=== PATIENT | female | born 1995 | race Caucasian/White ===

== ENCOUNTER 2018-12-19 08:56 | Emergency (ER) | payer MEDICAID ==
[~2018-12-19] VITALS: Ht 157.5 cm; Wt 76.7 kg
[2018-12-19] MEDS ORDERED: LIDOCAINE 1%-EPI 1:100,000 20 ML VIAL ONE (09:15)
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
[2018-12-19 09:27] LABS: APPEARANCE,URINE Turbid (CLEAR); BILIRUBIN,URINE Negative (NEGATIVE); BLOOD, URINE Moderate Ery/uL (NEGATIVE); COLOR,URINE Yellow (YELLOW); KETONES,URINE >=160 (NEGATIVE); LEUKOCYTE ESTERASE ,URINE Negative (NEGATIVE); NITRITE, URINE Positive (NEGATIVE); PROTEIN,URINE >=300 mg/dl (NEGATIVE); UGLUCOSE Negative (NEGATIVE)
[2018-12-19] MEDS ORDERED: HYDROCODONE/APAP 5/325MG 1 EACH TABLET PO ONE (09:30)
[2018-12-19] MEDS ORDERED: AZITHROMYCIN 100 MG/5 ML BOTTLE PO ONE (09:30)
[2018-12-19] MEDS ORDERED: CEFTRIAXONE 1 G VIAL IM ONE (09:30)
[2018-12-19] MEDS ORDERED: LIDOCAINE 1%-EPI 1:100,000 20 ML VIAL TP ONE (09:30)
[2018-12-19] MEDS ORDERED: BACI/NEOM/POLY B OINT PKT 1 UDPKT PACKET TP ONE (09:30)
[2018-12-19 09:34] LABS: BACTERIA,URINE Many /HPF (None Seen); SQUAMOUS EPITHELIAL CELL,UR Moderate /HPF (None Seen)
[2018-12-19] MEDS ORDERED: CEFTRIAXONE 1 G VIAL ONE (09:43)
[2018-12-19] MEDS ORDERED: AZITHROMYCIN 100 MG/5 ML BOTTLE ONE (09:43)
[2018-12-19] MEDS ORDERED: HYDROCODONE/APAP 5/325MG 1 EACH TABLET ONE (09:44)
--- NOTE | 2018-12-19 09:55 | NUR ---
GIVEN MEDS TO PATIENT PER MD ORDER VSS
[2018-12-19] MEDS ORDERED: TDAP [DIPH/PERTUSSIS/TET] 0.5 ML VIAL IM ONE ×2 (10:30→11:00)
--- NOTE | 2018-12-19 11:18 | NUR ---
PT. VERBALIZED UNDERSTANDING OF AFTERCARE INSTRUCTIONS.
[2018-12-19 11:20] VITALS: BP 115/69
== END 2018-12-19 11:23 | disposition home or self-care (01) ==
LOC: ER 08:57
DX: S71.111A Laceration without foreign body, right thigh, initial encounter (principal); S31.113A Laceration without foreign body of abdominal wall, right lower quadrant without penetration into peritoneal cavity, initial encounter; N39.0 Urinary tract infection, site not specified; F41.9 Anxiety disorder, unspecified; F31.9 Bipolar disorder, unspecified; F10.10 Alcohol abuse, uncomplicated; F17.200 Nicotine dependence, unspecified, uncomplicated; Y90.9 Presence of alcohol in blood, level not specified; Z71.6 Tobacco abuse counseling; Y04.8XXA Assault by other bodily force, initial encounter; Y93.89 Activity, other specified; Y92.89 Other specified places as the place of occurrence of the external cause; Y99.8 Other external cause status
CPT/HCPCS: 12002; 73552; 81001; 84703; 87086; 87491; 87591; 90471; 90715; 96372; 99284; 99406; A6403; J0696; J3490; 81000-TC; 87186-TC